=== PATIENT | female | born 1975 | race Caucasian/White ===

== ENCOUNTER 2017-01-14 09:51 | Emergency (ER) | payer MEDICAID, OTHER ==
[~2017-01-14] VITALS: Ht 165.1 cm; Wt 63.5 kg
[2017-01-14 09:51] VITALS: BP 116/90
== END 2017-01-14 11:46 | disposition home or self-care (01) ==
LOC: ER 09:54
DX: J02.0 Streptococcal pharyngitis (principal); J45.909 Unspecified asthma, uncomplicated
CPT/HCPCS: A4606; Z7610

== ENCOUNTER 2017-05-23 08:39 | Emergency (ER) | payer OTHER ==
[~2017-05-23] VITALS: Ht 165.1 cm; Wt 63.5 kg
[2017-05-23 08:39] VITALS: BP 129/90
== END 2017-05-23 09:06 | disposition home or self-care (01) ==
LOC: ER 08:42
DX: J01.80 Other acute sinusitis (principal); J45.909 Unspecified asthma, uncomplicated; Z98.890 Other specified postprocedural states
CPT/HCPCS: 99283; A4606; Z7610

== ENCOUNTER 2017-07-20 02:46 | Emergency (ER) | payer OTHER ==
[~2017-07-20] VITALS: Ht 165.1 cm; Wt 63.5 kg
[2017-07-20 03:39] VITALS: BP 142/92
[2017-07-20] MEDS ORDERED: ONDANSETRON 4 MG TAB.RAPDIS ONE (05:00)
[2017-07-20] MEDS ORDERED: LIDOCAINE VISCOUS 2% UD 15 ML UDC MM ONE (05:00)
[2017-07-20] MEDS ORDERED: LIDOCAINE VISCOUS 2% UD 15 ML UDC ONE (05:00)
[2017-07-20] MEDS ORDERED: MAG HYDROX/AL HYDROX/SIMETH 30 ML UDC ONE (05:00)
[2017-07-20] MEDS ORDERED: MAG HYDROX/AL HYDROX/SIMETH 30 ML UDC PO ONE (05:00)
[2017-07-20] MEDS ORDERED: ONDANSETRON 4 MG TAB.RAPDIS SL ONE (05:00)
== END 2017-07-20 05:17 | disposition home or self-care (01) ==
LOC: ER 02:49
DX: K21.9 Gastro-esophageal reflux disease without esophagitis (principal); J45.909 Unspecified asthma, uncomplicated
CPT/HCPCS: 70360-TC; 71045-TC; A4606; Q0162; Z7610

== ENCOUNTER 2017-09-13 17:51 | Emergency (ER) | payer OTHER ==
[~2017-09-13] VITALS: Ht 165.1 cm; Wt 65.8 kg
--- NOTE | 2017-09-13 18:05 | NUR ---
PT PRESENTED TO THE ER WTIH A C/O ABD CRAMPING AND VAGINAL BLEEDING WHILE 9 WKS . PT STATED THAT SHE STARTED SPOTTING THIS MORNING, BUT HAS GONE THROUGH 2 PADS IN THE THE LAST HOUR OR SO. PT IS GRIMMACING INTERMITTENTLY.
--- NOTE | 2017-09-13 18:11 | NUR ---
DR. SHERMAN IS AT THE BEDSIDE EVALUATING THE PT.
[2017-09-13] MEDS ORDERED: ONDANSETRON HCL/PF 4 MG/2 ML VIAL ONE (18:23)
[2017-09-13] MEDS ORDERED: ONDANSETRON HCL/PF 4 MG/2 ML VIAL IVP ONE (18:30)
[2017-09-13] MEDS ORDERED: IV NS 0.9% 1,000 ML BAG IV ONE (18:30)
--- NOTE | 2017-09-13 18:35 | NUR ---
US IS AT THE BEDSIDE.
--- NOTE | 2017-09-13 19:30 | NUR ---
DR. SHERMAN IS AT THE BEDSIDE SPEAKING TO THE PT.
--- NOTE | 2017-09-13 19:40 | NUR ---
IV removed. Catheter intact and site benign. Pressure and 4x4 applied to site. No bleeding noted.Patient discharged to home in stable condition. Written and verbal after care instructions given. Patient verbalizes understanding of instruction AND RX. PT AMBULATED OUT WITH A STEADY GAIT. VSS. NAD NOTED.
[2017-09-13 19:45] VITALS: BP 119/72
== END 2017-09-13 19:40 | disposition home or self-care (01) ==
LOC: ER 17:55
DX: O03.4 Incomplete spontaneous abortion without complication (principal); J45.909 Unspecified asthma, uncomplicated; Z98.890 Other specified postprocedural states
CPT/HCPCS: 36415; 76856-TC; 84702-TC; A4606; J2405; J7030; Z7610